=== PATIENT | female | born 1935 | race Caucasian/White ===

== ENCOUNTER → 2018-01-25 | Outpatient (CLI) | payer MEDICARE, OTHER ==
[~2018-01-25] MED LIST: ASPIR 8181 MG PO; PRAVASTATIN SOD20 MG PO; UNK CHOLESTEROL MED; UNKNOWN BP MED PO
[2018-01-25 13:17] LABS: BASOPHILS # (AUTO) 0.1 (0.0-0.1); BASOPHILS % 0.8 % (0.0-1.0); EOSINOPHILS # (AUTO) 0.4 (0.0-0.4); HEMATOCRIT 37.3 % (34.2-44.1); HEMOGLOBIN 12.3 g/dL (12.0-16.0); LYMPHOCYTES # (AUTO) 1.7 (1.0-3.2); LYMPHOCYTES % 17.6 % (18.0-39.1); MEAN CORPUSCULAR HEMOGLOBIN 31.4 pg (28-32); MEAN CORPUSCULAR VOLUME 95.2 fL (81-99); MONOCYTES % 9.9 % (4.4-11.3); NEUTROPHILS # (AUTO) 6.5 (2.1-6.9); NEUTROPHILS % 67.3 % (38.7-80.0); PLATELET COUNT 279 x10e3/uL (140-360); RED BLOOD COUNT 3.92 x10e6/uL (3.6-5.1); RED CELL DISTRIBUTION WIDTH 14.3 % (11.7-14.4)
--- NOTE | 2018-01-25 13:31 | Diagnostic Imaging Report ---
PROCEDURE: Frontal and lateral views of the chest. COMPARISON: Patients [facility], , CHEST 2 VIEWS, 05/17/2014, 10:04. INDICATIONS: SHORT OF BREATH FINDINGS: Lines/tubes: None. Lungs/pleura: The lungs are mildly hyperinflated. There is slight elevation of the right hemidiaphragm with pleural thickening, as before. Scarring or linear atelectasis is present in the left lower lung. There is no evidence of pneumonia or pulmonary edema. There is no pleural effusion or pneumothorax. Heart and mediastinum: The cardiomediastinal silhouette is unchanged. Bones: No acute bony abnormality. Post operative changes status post right sixth rib resection. IMPRESSION: No acute cardiopulmonary disease. Status post right thoracotomy. Dictated by: NERI SHETTY M.D. on 01/25/2018 at 13:37 Electronically approved by: NERI SHETTY M.D. on 01/25/2018 at 13:37
== END ==
LOC: RAD 12:49
PROVIDERS: ATTEND General Practice
DX: R06.02 Shortness of breath (principal)
CPT/HCPCS: 36415; 71046; 85025

== ENCOUNTER → 2018-07-27 | Outpatient (CLI) | payer MEDICARE, OTHER ==
--- NOTE | 2018-07-27 11:10 | Diagnostic Imaging Report ---
EXAMINATION: PA and lateral views of the chest. COMPARISON: The report for the chest radiograph 07/28/2013 was reviewed. No images available. CLINICAL HISTORY: Fatigue, shortness of breath DISCUSSION: The lungs are reasonably well inflated. Blunting of the right lateral costophrenic angle is noted. Multifocal linear opacities in the left midlung and right apex compatible with fibrotic change. Tortuous thoracic aorta with atherosclerotic calcification. Normal heart size. No overt pulmonary edema. Posttraumatic deformity of the right posterior sixth rib. No acute osseous abnormality. IMPRESSION: Blunting of the right costophrenic sulcus was described on the report from comparison examination 07/28/2013 and likely reflects chronic posttraumatic pleural thickening in the setting of associated right rib fracture deformity. No consolidative pneumonia. Scattered foci of linear opacity in the lingula and right upper lung likely reflect focal fibrotic changes. Signed by: Dr. Vinicio Chaves M.D. on 07/27/2018 11:07 AM
== END ==
LOC: RAD 10:37
PROVIDERS: ATTEND General Practice
DX: R06.02 Shortness of breath (principal); R53.83 Other fatigue
CPT/HCPCS: 71046

== ENCOUNTER → 2018-08-03 | Outpatient (CLI) | payer MEDICARE, OTHER | LOC: RESP 11:10 | PROVIDERS: ATTEND Internal Medicine Pulmonary Disease | DX: R06.02 Shortness of breath (principal) | CPT/HCPCS: 94060; 94727; 94729 ==